=== PATIENT | female | born 1950 | race Caucasian/White ===

== ENCOUNTER 2017-05-06 10:38 | Inpatient (IN) | payer OTHER, MEDICAID ==
[~2017-05-06] VITALS: Ht 167.6 cm; Wt 106.6 kg
[2017-05-06 10:40] VITALS: BP 158/71
[2017-05-06] MEDS ORDERED: CARVEDILOL ER40 MG PO (10:47)
[2017-05-06] MEDS ORDERED: NEURONTIN 300300 M1 PO (10:47)
[2017-05-06] MEDS ORDERED: METFORMIN HCL500 MG PO (10:48)
[2017-05-06] MEDS ORDERED: VESICARE10 M1 PO (10:48)
[2017-05-06] MEDS ORDERED: HYDROCHLOROTH12.5 M1 PO (10:48)
[2017-05-06 11:22] LABS: HEMOGLOBIN 10.9 gm/dL (12.0-15.0); MCH 30.3 pg (26.0-34.0); MCV 91.8 fL (80.0-100.0); MPV 8.7 fl. (7.2-11.1); NUCLEATED RBCS 0 /100WBC; PLATELET COUNT* 128 thou/uL (150-400); RDW-CV 14.9 % (10.5-14.5); WBC 11.7 thou/uL (4.0-11.0)
[2017-05-06 11:29] LABS: CREATININE 1.1 mg/dL (0.6-1.3)
[2017-05-06 11:31] LABS: APTT 24.9 Seconds (25.0-31.3); INR 1.2; PROTIME 11.6 Seconds (9.20-11.50)
[2017-05-06 11:34] LABS: ALBUMIN 3.6 g/dL (3.4-5.0)
[2017-05-06 11:36] LABS: POTASSIUM 2.9 mmol/L (3.5-5.1)
[2017-05-06 11:48] LABS: ABSOLUTE LYMPHOCYTES 0.7 thou/uL (0.8-5.3); ABSOLUTE MONOCYTES 0.1 thou/uL (0.0-1.2); ABSOLUTE NEUTROPHILS 10.9 thou/uL (1.6-8.1); PLATELET ESTIMATE ADEQUATE
[2017-05-06 11:50] LABS: URINE BILIRUBIN NEGATIVE (Negative); URINE BLOOD NEGATIVE (Negative); URINE CLARITY CLEAR; URINE COLOR YELLOW; URINE GLUCOSE-RANDOM NEGATIVE (Negative); URINE KETONES NEGATIVE (Negative); URINE LEUKOCYTES-REFLEX NEGATIVE (Negative); URINE NITRITE-REFLEX NEGATIVE (Negative); URINE PROTEIN NEGATIVE (Negative); URINE UROBILINOGEN 0.2 E.U./dl (0.2-1.0)
[2017-05-06] MEDS ORDERED: CHILDREN'S ASPI81 M1 PO (12:02)
[2017-05-06] MEDS ORDERED: ALBUTEROL2.5 MG/0.1 INH (12:02)
[2017-05-06] MEDS ORDERED: XANAX 0.5 MG0.5 MG PO (12:02)
[2017-05-06] MEDS ORDERED: TUMS PO (12:03)
[2017-05-06] MEDS ORDERED: CYMBALTA20 MG PO (12:04)
[2017-05-06] MEDS ORDERED: IRON325 PO (12:04)
[2017-05-06] MEDS ORDERED: NEURONTIN600 MG PO (12:05)
[2017-05-06] MEDS ORDERED: HYDRALAZINE HC100 MG PO (12:06)
[2017-05-06] MEDS ORDERED: HYDROCODON-ACE1 EAC7 PO (12:07)
[2017-05-06] MEDS ORDERED: CENTRUM SILVER1 EAC4 PO (12:08)
[2017-05-06] MEDS ORDERED: LIDOCAINE TOP (12:08)
[2017-05-06] MEDS ORDERED: BENICAR40 MG PO (12:09)
[2017-05-06] MEDS ORDERED: NORCO 5-325 TA1 EACH PO (13:33)
[2017-05-06 15:02] LABS: BE 5.4 mmol/L (-2 to +3); HCO3 31.8 mmol/L (22.0-26.0); PO2 119.2 mmHg (75.0-100.0); pH 7.374 (7.340-7.450)
[2017-05-06 15:04] LABS: PCO2 55.8 mmHg (35.0-45.0)
[2017-05-06 15:20] LABS: INFLUENZA A ANTIGEN None Detected (None Detect); INFLUENZA B ANTIGEN None Detected (None Detect)
[2017-05-06 16:25] VITALS: BP 147/65
[2017-05-06 16:30] VITALS: BP 161/69
[2017-05-06 19:17] LABS: BE 6.7 mmol/L (-2 to +3); HCO3 32.9 mmol/L (22.0-26.0); pH 7.395 (7.340-7.450)
[2017-05-06 19:27] LABS: PO2 127.7 mmHg (75.0-100.0)
[2017-05-06 20:00] VITALS: BP 150/55
[2017-05-06 21:14] LABS: POTASSIUM 3.1 mmol/L (3.5-5.1)
[2017-05-06] MEDS ORDERED: POTASSIUM20 PO (22:23)
[2017-05-06] MEDS ORDERED: FLORASTOR250 MG PO (22:25)
[2017-05-06] MEDS ORDERED: CRESTOR20 MG PO (22:26)
[2017-05-07 00:06] VITALS: BP 124/39
[2017-05-07 04:02] VITALS: BP 126/48
[2017-05-07 08:30] VITALS: BP 111/44
[2017-05-07 08:42] LABS: HEMOGLOBIN 9.6 gm/dL (12.0-15.0); MCHC 31.9 g/dL (28.0-37.0); MCV 93.9 fL (80.0-100.0); MPV 10.1 fl. (7.2-11.1); RBC 3.19 mil/uL (4.20-5.00); RDW-CV 15.9 % (10.5-14.5); WBC 14.2 thou/uL (4.0-11.0)
[2017-05-07 08:57] LABS: CALCIUM 8.5 mg/dL (8.5-10.1); CREATININE 1.3 mg/dL (0.6-1.3); POTASSIUM 4.3 mmol/L (3.5-5.1)
[2017-05-07 09:02] LABS: ALBUMIN 3.1 g/dL (3.4-5.0); MAGNESIUM 2.1 mg/dL (1.8-2.4); TOTAL BILIRUBIN 0.8 mg/dL (<0.1-1.0); TOTAL PROTEIN 5.2 g/dL (6.4-8.2)
[2017-05-07 12:00] VITALS: BP 109/35
[2017-05-07 15:30] VITALS: BP 171/63
[2017-05-07 20:00] VITALS: BP 166/75
[2017-05-08] VITALS (7 sets, daily range): BP systolic 113–143; BP diastolic 43–58
[2017-05-08 05:40] LABS: CALCIUM 8.3 mg/dL (8.5-10.1); CREATININE 1.1 mg/dL (0.6-1.3); HEMATOCRIT 24.6 % (37.0-47.0); HEMOGLOBIN 8.3 gm/dL (12.0-15.0); MCH 30.6 pg (26.0-34.0); MCHC 33.9 g/dL (28.0-37.0); MCV 90.2 fL (80.0-100.0); MPV 9.5 fl. (7.2-11.1); POTASSIUM 3.8 mmol/L (3.5-5.1); RBC 2.72 mil/uL (4.20-5.00); RDW-CV 15.3 % (10.5-14.5); WBC 11.5 thou/uL (4.0-11.0)
--- NOTE | 2017-05-08 17:02 | 2DMMODE ---
[place] [address] 2 D/M-MODE ECHOCARDIOGRAM Name: COLTON SUAREZ Room: [facility] R.#: [id number] Admission: 05/06/17 Attend Phys: Nohelia Butler, Discharge: Date of : 48 Date of Service: 05/08/17 1702 Report #: [id number] THIS REPORT FOR: //name// APPROVED REPORT Study performed: 05/08/2017 14:20:59 EXAM: Comprehensive 2D, Doppler, and color-flow Echocardiogram Patient Location: In-Patient Room #: [facility] Status: routine BSA: 2.15 HR: 74 bpm BP: 113/44 mmHg Rhythm: NSR Other Information Study Quality: Good Indications Dyspnea 2D Dimensions LVEF(%): 66.70 (>50%) IVSd: 16.38 (7-11mm) LVOT Diam: 19.73 (18-24mm) LVDd: 54.61 mm PWd: 13.69 (7-11mm) Ascending Ao: 34.42 (22-36mm) LVDs: 34.26 (25-40mm) Aortic Root: 27.91 mm Whatley's LVEF: 66.70 % Volumes Left Atrial Volume (Systole) LA ESV Index: 51.50 mL/m2 Aortic Valve AoV Peak Graham.: 2.71 m/s AO Peak Gr.: 29.45 mmHg LVOT Max P.84 mmHg AO Mean Gr.: 17.17 mmHg LVOT Mean P.88 mmHg LVOT Max V: 1.21 m/s AO V2 VTI: 56.55 cm LVOT Mean V: 0.77 m/s KENISHA (VTI): 1.62 cm2 LVOT V1 VTI: 29.99 cm AI [place]: 2.46 m/s2 AI PHT: 449.09 [place] [address] 2 D/M-MODE ECHOCARDIOGRAM Name: COLTON SUAREZ Room: [address] [place] .R.#: [id number] Admission: 05/06/17 Attend Phys: Nohelia Butler, Discharge: Date of : 48 Date of Service: 05/08/17 1702 Report #: [id number] Mitral Valve E/A Ratio: 1.51 MV Decel. Time: 211.34 ms MV E Max Graham.: 1.30 m/s MV PHT: 61.29 ms MVA (PHT): 3.59 cm2 TDI E/Lateral E': 14.44 E/Medial E': 21.67 Medial E' Graham.: 0.06 m/s Lateral E' Graham.: 0.09 m/s Pulmonary Valve PV Peak Graham.: 1.45 m/s PV Peak Gr.: 8.41 mmHg Tricuspid Valve TR Peak Gr.: 36.75 mmHg RVSP: 41.00 mmHg Left Ventricle The left ventricle is normal size. There is normal LV segmental wall motion. Moderate concentric left ventricular hypertrophy. Left ventricular systolic function is normal. The left ventricular ejection fraction is within the normal range. LVEF is 60-65%. The left ventricular diastolic function is normal. Right Ventricle The right ventricle is normal size. The right ventricular systolic function is normal. Atria Left atrium is severely dilated. The right atrium size is normal. Aortic Valve Mild aortic valve sclerosis. Mild aortic regurgitation. Mild aortic stenosis. Mitral Valve The mitral valve is normal in structure. Trace mitral regurgitation. No evidence of mitral valve stenosis. Tricuspid Valve The tricuspid valve is normal in structure. Mild tricuspid regurgitation. The RVSP is 40-45 mmHg[place] [address] 2 D/M-MODE ECHOCARDIOGRAM Name: COLTON SUAREZ Room: [address] IN [facility]#: [id number] Admission: 05/06/17 Attend Phys: Nohelia Butler, Discharge: Date of : 48 Date of Service: 05/08/17 1702 Report #: [id number] The pulmonary valve is normal in structure. Mild pulmonic regurgitation. Great Vessels The aortic root is normal in size. IVC is normal in size and collapses with >50% inspiration Pericardium There is no pericardial effusion. <Conclusion> LVEF is 60-65%. Moderate concentric left ventricular hypertrophy. Left atrium is severely dilated. Mild aortic stenosis. Mild aortic regurgitation. Mild tricuspid regurgitation. The RVSP is 40-45 mmHg. <ELECTRONICALLY SIGNED> By: Alfredo Mehta MD, FACC 05/08/171701 01 01 Alfredo Mehta MD, FACC /INF
[2017-05-09 04:02] VITALS: BP 136/38
[2017-05-09 08:00] VITALS: BP 151/51
[2017-05-09 12:00] VITALS: BP 123/38
[2017-05-09 16:16] VITALS: BP 143/92
[2017-05-09 20:30] VITALS: BP 178/63
[2017-05-10] VITALS: BP 167/55
[2017-05-10 02:06] LABS: ADENOVIRUS Negative (Negative); INFLUENZA A Negative (Negative); INFLUENZA B Negative (Negative); METAPNEUMOVIRUS Negative (Negative); PARAINFLUENZA 1 Negative (Negative); PARAINFLUENZA 2 Negative (Negative); PARAINFLUENZA 3 Negative (Negative); RHINOVIRUS Negative (Negative); RSV A Negative (Negative); RSV B Negative (Negative)
[2017-05-10 04:11] VITALS: BP 153/58
[2017-05-10 05:24] LABS: HEMATOCRIT 25.9 % (37.0-47.0); HEMOGLOBIN 8.7 gm/dL (12.0-15.0); MCH 30.3 pg (26.0-34.0); MCHC 33.7 g/dL (28.0-37.0); MCV 89.9 fL (80.0-100.0); MPV 9.5 fl. (7.2-11.1); RBC 2.89 mil/uL (4.20-5.00); RDW-CV 14.9 % (10.5-14.5)
[2017-05-10 05:38] LABS: CALCIUM 8.7 mg/dL (8.5-10.1); MAGNESIUM 1.7 mg/dL (1.8-2.4)
[2017-05-10 05:40] LABS: POTASSIUM 2.7 mmol/L (3.5-5.1)
[2017-05-10 08:00] VITALS: BP 144/40
[2017-05-10] MEDS ORDERED: LEVOFLOXACIN750 MG PO (09:59)
[2017-05-10] MEDS ORDERED: MUCINEX600 MG PO (09:59)
[2017-05-10 11:58] VITALS: BP 147/60
[2017-05-10 14:59] VITALS: BP 147/60
== END 2017-05-10 15:30 | disposition home or self-care (01) | DRG 871 ==
LOC: M.ERS 10:38 → M.TBA-ER 14:24 → M.2W 14:24
PROVIDERS: Emergency Medicine Emergency Medical Services; Internal Medicine; ADMIT Internal Medicine
DX: A40.3 Sepsis due to Streptococcus pneumoniae (principal); J13 Pneumonia due to Streptococcus pneumoniae; I50.33 Acute on chronic diastolic (congestive) heart failure; J96.01 Acute respiratory failure with hypoxia; J96.02 Acute respiratory failure with hypercapnia; Z96.653 Presence of artificial knee joint, bilateral; E11.9 Type 2 diabetes mellitus without complications; I11.0 Hypertensive heart disease with heart failure; E78.5 Hyperlipidemia, unspecified; E87.6 Hypokalemia; K59.00 Constipation, unspecified; I27.20 Pulmonary hypertension, unspecified; I35.0 Nonrheumatic aortic (valve) stenosis; W18.39XA Other fall on same level, initial encounter; Z79.899 Other long term (current) drug therapy; Z90.710 Acquired absence of both cervix and uterus; Z90.49 Acquired absence of other specified parts of digestive tract; Z88.0 Allergy status to penicillin; Z91.041 Radiographic dye allergy status; Z87.891 Personal history of nicotine dependence; Y93.89 Activity, other specified; Y92.89 Other specified places as the place of occurrence of the external cause; Y99.8 Other external cause status